=== PATIENT | female | born 1975 | race Asian ===

== ENCOUNTER 2020-06-10 13:09 | Emergency (ER) | payer BC ==
[~2020-06-10] VITALS: Ht 154.9 cm; Wt 51.7 kg
[2020-06-10 13:28] VITALS: Ht 154.9 cm; Wt 51.7 kg
[2020-06-10 15:10] LABS: BASOPHIL % 0.9 % (0.2-1.3); PLATELET COUNT 257 x10^3mcL (179-408)
[2020-06-10 15:21] LABS: RED CELL DISTRIBUTION WIDTH 16.6 % (12.3-17.7)
[2020-06-10 15:48] LABS: CALCIUM 8.8 mg/dL (8.5-10.1); CARBON DIOXIDE 25.6 mmol/L (21-32); CHLORIDE SERUM 101 mmol/L (98-107); CREATININE SERUM 0.7 mg/dL (0.6-1.0); GFR1 > 60 mL/min; GLUCOSE SERUM 101 mg/dL (74-106); POTASSIUM SERUM 4.1 mmol/L (3.5-5.1); SODIUM SERUM 135 mmol/L (136-145)
[2020-06-10 15:53] LABS: ALKALINE PHOSPHATASE 54 U/L (46-116); ALT/SGPT 23 U/L (14-59); AST/SGOT 14 U/L (15-37); BILIRUBIN TOTAL 0.3 mg/dL (0.20-1.00); TOTAL PROTEIN, SERUM 7.8 g/dL (6.4-8.2)
[2020-06-10 16:28] LABS: microscopic required? NO
[2020-06-10 16:42] LABS: urine erythrocyte NEGATIVE (NEGATIVE)
[2020-06-10 18:35] VITALS: BP 124/79
== END 2020-06-10 18:35 | disposition home or self-care (01) ==
LOC: ED 13:09
PROVIDERS: Emergency Medicine
DX: R33.9 Retention of urine, unspecified (principal); R10.30 Lower abdominal pain, unspecified